=== PATIENT | female | born 2000 | race Caucasian/White ===

== ENCOUNTER 2021-07-27 07:12 | Day surgery (SDC) | payer MEDICAID, SELFPAY ==
[~2021-07-27] VITALS: Ht 165.1 cm; Wt 61.2 kg
[2021-07-27] MEDS ORDERED: SIMETHICONE 40 MG/0.6 ML ML ONE (07:15)
[2021-07-27] MEDS ORDERED: MEPERIDINE 100 MG INJ. 100 MG/ML VIAL ONE (07:15)
[2021-07-27] MEDS ORDERED: MIDAZOLAM HCL 5 MG/5 ML VIAL ONE ×2 (07:16→08:23)
[2021-07-27 07:42] LABS: HCG,QUAL RESULT NEGATIVE (NEGATIVE)
[2021-07-27] MEDS ORDERED: DIPHENHYDRAMINE INJ 50 MG/ML VIAL ONE (08:19)
[2021-07-27 12:47] VITALS: BP_SYST 119
== END 2021-07-27 11:00 | disposition home or self-care (01) ==
LOC: SDS 07:12 → SMU 07:13 → SDS 11:00
PROVIDERS: ATTEND Internal Medicine
DX: K62.5 Hemorrhage of anus and rectum (principal); K64.8 Other hemorrhoids; K64.4 Residual hemorrhoidal skin tags; Z79.899 Other long term (current) drug therapy; Z20.822 Contact with and (suspected) exposure to COVID-19
CPT/HCPCS: 45378; 84703; 99152; 99153; G0378; J1200; J2175; J2250; U0003